=== PATIENT | female | born 2000 | race Two or more races ===

== ENCOUNTER 2024-08-19 15:26 | Emergency (ER) | payer MEDICAID, SELFPAY ==
[2024-08-19 15:37] VITALS: BP 105/69; PULSE 75; RESP 18; TEMP 36.9; O2SAT 99; BMI 24.4
--- NOTE | 2024-08-19 15:48 | XR_ITS ---
Examination: Complete OB ultrasound, less than 14 weeks, transabdominal Date and time of exam: August 19, 2024 1554 hours INDICATIONS: Positive home test today with pelvic pain Technique: Obstetrical ultrasound images less than 14 weeks performed via transabdominal imaging Findings: Uterus 9.2 cm endometrial stripe 0.3 cm No uterine mass or intrauterine gestation Right ovary 3.1 cm arterial flow 23 mm cyst Left ovary 3.2 cm arterial flow IMPRESSION: No intrauterine gestation or uterine mass, negative for retained products of conception.
--- NOTE | 2024-08-19 15:49 | PD.EDRME ---
Rapid Medical Screening Exam RME Arrival date/time: 08/19/24 15:26 24-year-old female presents to the emergency room today stating she feels she may be reports lower back pain and pelvic pain Chief Complaint: General Adult/Misc Complain Time Seen by Provider: 08/19/24 15:42 Vital signs: Vital Signs Temperature 98.5 F 08/19/24 15:37 Pulse Rate 75 08/19/24 15:37 Respiratory Rate 18 08/19/24 15:37 Blood Pressure 105/69 08/19/24 15:37 Pulse Oximetry (%) 99 08/19/24 15:37 Oxygen Delivery Method Room Air 08/19/24 15:37
[2024-08-19 16:41] LABS: Collection Type, Urine Clean Catch
[2024-08-19 16:48] LABS: Basophils # (Auto) 0.1 Thou/mm3 (0.0-0.2); Basophils % (Auto) 1 % (0-2.5); Eosinophils # (Auto) 0.4 Thou/mm3 (0.0-0.5); Eosinophils % (Auto) 4 % (0-10); Hematocrit 39.1 % (36.0-46.0); Hemoglobin 13.1 g/dL (12.0-16.0); Immature Granulocytes % (Auto) 0 % (0-0); Immature Granulocytes Auto 0.03 Thou/mm3 (0.00-0.00); Lymphocytes # (Auto) 3.1 Thou/mm3 (1.0-4.8); Lymphocytes % (Auto) 28 % (10-50); Mean Corpuscular HGB Conc 33.5 g/dl (31.0-37.0); Mean Corpuscular Hemoglobin 27.1 pg (25.0-35.0); Mean Corpuscular Volume 81 fL (80-100); Monocytes # (Auto) 0.7 Thou/mm3 (0.0-0.8); Monocytes % (Auto) 6 % (0-12); Neutrophils # (Auto) 6.7 Thou/mm3 (1.8-7.7); Neutrophils % (Auto) 61 % (37-80); Nucleated Red Blood Cell % 0 /100 WBC (0); Platelet Count 346 Thou/mm3 (140-440); RDW Standard Deviation 45.2 fL (36.4-46.3); Red Blood Count 4.84 Miln/mm3 (4.00-5.20)
[2024-08-19 17:04] LABS: Bilirubin,Urine Negative (Negative); Blood,Urine Negative (Negative); Clarity,Urine Clear (Clear/Hazy); Color,Urine Yellow (Lt Yel-Yel); Glucose, Urine Negative (Negative); Ketones,Urine Negative (Negative); Leukocyte Esterase,Urine Negative (Negative); Nitrite,Urine Negative (Negative); PH,Urine 6.5 (5.0-7.0); Protein,Urine Negative (Neg - Trace); RBC,Urine 1 /hpf (0-3); Specific Gravity,Urine 1.022 (1.001-1.035); Squamous Epithelial Cell,Urine < 1 /hpf (0-5); Urobilinogen,Urine Negative mg/dL (0.0-1.0); WBC,Urine 1 /hpf (0-5)
[2024-08-19 17:08] LABS: Alanine Aminotransferase 17 U/L (10-49); Albumin, Serum 4.7 gm/dL (3.5-5.0); Albumin/Globulin Ratio 1.6 (1.2-2.2); Alkaline Phosphatase 95 U/L (46-116); Anion Gap 8 (7-16); Aspartate Amino Transferase 24 U/L (0-34); BUN/Creatinine Ratio 14 Ratio (12-20); Beta HCG,Quantitative < 1 mIU/mL (<5.0); Bilirubin,Total 1.2 mg/dL (0.3-1.2); Blood Urea Nitrogen 10 mg/dL (9-23); Calcium 8.8 mg/dL (8.3-10.6); Calcium (Corrected) 8.8 mg/dL (8.5-10.1); Carbon Dioxide 25.6 mMol/L (20.0-31.0); Chloride 105 mMol/L (98-107); Creatinine (Component) 0.7 mg/dL (0.6-1.3); Estimated Creatinine Clearance 96.9 mL/min (>60); Globulin 2.9 gm/dL (2.3-3.5); Glucose 82 mg/dL (74-106); Osmolality,Calculated 275 (275-295); Sodium 139 mMol/L (136-145); Total Protein 7.6 gm/dL (5.7-8.2); eGFR > 60 See Note
--- NOTE | 2024-08-19 17:36 | PD.EDADULT ---
ED General RME/HPI General Chief complaint: General Adult/Misc Complain Stated complaint: TEST Time Seen by Provider: 08/19/24 15:42 Arrival date/time: 08/19/24 15:26 24-year-old female presents to the emergency room today stating she feels she may be reports lower back pain and pelvic pain Limitations: no limitations RME / HPI RME / HPI narrative: 08/19/24 15:26 24-year-old female presents to the emergency room today stating she feels she may be reports lower back pain and pelvic pain Related Data Home Medications ?Medication ?Instructions ?Recorded ?Confirmed vitamin-ferrous fumarate 1 tab PO QDAY 05/03/22 05/03/22 28 mg iron-folic acid 800 mcg tablet ( Vitamins with Minerals) Previous Rx's ?Medication ?Instructions ?Recorded docusate sodium 100 mg capsule 100 mg PO BID #60 caps 05/04/22 (Colace) ibuprofen 600 mg tablet 600 mg PO Q6H PRN pain #90 tabs 05/04/22 lanolin 50 % topical ointment 1 applic topical TID PRN skin 05/04/22 irritation #15 tubes acetaminophen 500 mg capsule 500 mg PO Q6H PRN fever or pain 08/08/22 #30 caps ibuprofen 600 mg tablet 600 mg PO Q8H PRN fever or pain 08/08/22 #30 tabs IBU 800 mg tablet (ibuprofen) 800 mg PO Q6H PRN pain #30 tabs 07/08/23 baclofen 10 mg tablet 10 mg PO BID #20 tabs 07/08/23 ibuprofen 600 mg tablet 600 mg PO Q6H #30 tabs 08/19/24 Allergies Allergy/AdvReac Type Severity Reaction Status Date / Time No Known Allergies Allergy Verified 08/19/24 15:28 Review of Systems Review of Systems Systems Reviewed: All systems reviewed, normal except as documented Constitutional Constitutional: Reports system reviewed and no additional complaints, except as documented, Denies fever(s) and Denies headache(s) Eyes Eyes: Reports system reviewed and no additional complaints, except as documented and Denies blurry vision ENT Ears, Nose, Mouth, and Throat: Reports system reviewed and no additional complaints, except as documented, Denies headache(s), Denies nasal congestion and Denies nasal discharge Cardiovascular Cardiovascular: Reports system reviewed and no additional complaints, except as documented, Denies chest pain and Denies dyspnea Respiratory Respiratory: Reports system reviewed and no additional complaints, except as documented, Denies chest congestion, Denies cough and Denies dyspnea Gastrointestinal Gastrointestinal: Reports system reviewed and no additional complaints, except as documented and Denies abdominal pain Genitourinary Genitourinary: Reports system reviewed and no additional complaints, except as documented and Reports pelvic pain Musculoskeletal Musculoskeletal: Reports system reviewed and no additional complaints, except as documented and Reports back pain Integumentary/Breasts Skin/Breast: Reports system reviewed and no additional complaints, except as documented and Denies rash Neurologic Neurologic: Reports system reviewed and no additional complaints, except as documented, Reports as per HPI and Denies headache(s) Past Medical History Past Medical History NEUROLOGIC: Negative Neurological Disorders CARDIAC: Negative Cardiac Disorders or Congestive Heart Failure RESPIRATORY: Negative Chronic Obstructive Pulmonary Disease (COPD) GASTROINTESTINAL: Negative Gastrointestinal Disorders or Hepatitis GENITOURINARY: Negative Genitourinary Disorders or Renal Disease REPRODUCTIVE: Positive Previous Pregnancies (X1) MUSCULOSKELETAL: Negative Musculoskeletal Disorders ENDOCRINE: Negative Endocrine Disorders, Diabetes Mellitus Type 1 or Diabetes Mellitus Type 2 HEMATOLOGIC: Negative Blood Disorders OTHER HISTORY: Positive Hospitalization (CHILDBIRTH); Negative Autoimmune Disease, Down Syndrome, Developmental Delay, Shingles, Falls, Blood Transfusions, Blood Transfusion Reaction, Anesthesia Reactions, Organ Transplant, Chemotherapy, Radiation Therapy, Hyperbaric Therapy, MRSA, VRSA, Vancomycin-Resistant Enterococci, Human Immunodeficiency Virus (HIV), Chicken Pox, Measles, Mumps, Rubella ([place] Measles), Pertussis, Clostridium Difficile or Cancer Family History FAMILY HISTORY: Negative Family Psychiatric Problems, Family Respiratory Disorders, Family Cardiac Disorders, Family Gastrointestinal Problems, Family Cancer, Family Surgery or Family Anesthesia Reaction Surgical History SURGICAL: Negative Section or Organ Transplant Social History SMOKING STATUS: Never smoker ED Exam General Limitations: Present no limitations General appearance: Present alert and in no apparent distress Head Head exam: Present atraumatic, normocephalic and normal inspection Eye Eye exam: Present normal appearance, PERRL and EOMI; Absent conjunctival injection ENT ENT exam: Present normal exam, normal oropharynx and mucous membranes moist Neck Neck exam: Present normal inspection, full ROM and trachea midline Chest Chest inspection: Present normal inspection and symmetric chest wall rise Respiratory Respiratory exam: Present normal lung sounds bilaterally; Absent respiratory distress Cardiovascular Cardiovascular exam: Present regular rate, normal rhythm and normal heart sounds Abdominal Exam Abdominal exam: Present soft and normal bowel sounds; Absent distention, tenderness, guarding, rebound or rigidity Extremities Exam Extremities exam: Present normal inspection and full ROM Back Exam Back exam: Present normal inspection and full ROM Neurological Exam Neurological exam: Present alert, oriented X3, CN II-XII intact and reflexes normal; Absent motor sensory deficit Psychiatric Psychiatric exam: Present normal affect and normal mood Skin Skin exam: Present warm, dry, intact and normal color; Absent rash Course Quality Measures none Orders Category Date Time Status US OB <= 14 weeks fetus Stat Exams 08/19/24 15:48 Completed ABO/RH Type Stat Lab 08/19/24 16:24 Completed Beta HCG,Quantitative Stat Lab 08/19/24 16:24 Completed CBC Stat Lab 08/19/24 16:24 Completed Comprehensive Metabolic Panel Stat Lab 08/19/24 16:24 Completed UA [Urinalysis] Stat Lab 08/19/24 16:33 Completed Urine Culture Stat Lab 08/19/24 16:33 Received Vital Signs Vital signs: Vital Signs Temperature 98.5 F 08/19/24 15:37 Pulse Rate 75 08/19/24 15:37 Respiratory Rate 18 08/19/24 15:37 Blood Pressure 105/69 08/19/24 15:37 Pulse Oximetry (%) 99 08/19/24 15:37 Oxygen Delivery Method Room Air 08/19/24 15:37 O2 saturation 99% room air within normal limits Discharge Plan Plan Patient Disposition: HOME (Self Care) Discharge Disposition comment: Stable Prescriptions/Referrals Prescriptions/Med Rec: New ibuprofen 600 mg tablet 600 mg PO Q6H Qty: 30 0RF No Action vit-iron fum-folic ac [ Vitamin with Minerals] 28 mg iron- 800 mcg Tablet 1 tab PO QDAY docusate sodium [Colace] 100 mg capsule 100 mg PO BID Qty: 60 0RF ibuprofen 600 mg tablet 600 mg PO Q6H PRN (Reason: pain) Qty: 90 0RF lanolin 50 % ointment 1 applic topical TID PRN (Reason: skin irritation) Qty: 15 0RF ibuprofen 600 mg tablet 600 mg PO Q8H PRN (Reason: fever or pain) Qty: 30 0RF acetaminophen 500 mg capsule 500 mg PO Q6H PRN (Reason: fever or pain) Qty: 30 0RF baclofen 10 mg tablet 10 mg PO BID Qty: 20 0RF ibuprofen [IBU] 800 mg tablet 800 mg PO Q6H PRN (Reason: pain) Qty: 30 0RF Problem List Clinical Impression: Back pain, Pelvic pain Patient/Caregiver Discharge Instructions Education Materials: ED Back Care Tips Additional Instructions: Please follow up with your primary care doctor in the next 24-48hrs for any worsening symptoms return here immediately Print Language: Greek Stand Alone Forms: [employer]ka Award Info., Work/School Release, Patient Portal Info Letter PA/MANAGER REVIEW Supervising Physician PA/MANAGER REVIEW Supervising Physician: Dr. Tate MDM Narrative MDM hospital course (for use when minimal MDM required): 24-year-old female presents to the emergency room today stating she feels she may be reports lower back pain and pelvic pain On exam patient well-appearing patient is not acutely toxic no acute distress Lab work and imaging obtained no acute emergent findings noted Attempted to reevaluate the patient patient appeared to elope from the emergency department prior to final disposition Clinical Information Provided by: none Medical Records reviewed None Meds/Rx considered, not ordered None Labs/Rad/Tests considered, not ordered Describe: Ordered Chronic Illness/Social Conditions which may negatively complicate care or outcome(s)-explain: None or not applicable EKG EKG not done Labs Labs: Interpreted by me Lab(s) Interpretation(s): Obtain Imaging Imaging Interpretation(s): Reviewed by me Medication Administration(s) none Diagnosis Differential Diagnosis ED Complaint MDM: Muscle spasm, back pain, UTI, cystitis Diagnoses ruled out and/or further discussions: Back pain
--- NOTE | 2024-08-19 17:47 | PC.NURSE ---
no answer x 2 at 1730 and 1747. checked outside and lobby.
--- NOTE | 2024-08-19 18:32 | PC.NURSE ---
NO ANSWER [phone]
== END 2024-08-19 18:35 | disposition home or self-care (01) ==
LOC: SERX 18:44
PROVIDERS: Nurse Practitioner Primary Care; Emergency Provider Emergency Medicine
DX: M54.9 Dorsalgia, unspecified (principal)
CPT/HCPCS: 36415; 76801; 80053; 81001; 84702; 85025; 86900; 86901; 87086; 99284